=== PATIENT | male | born 1980 | race Caucasian/White ===

== ENCOUNTER 2017-02-18 12:09 | Emergency (ER) | payer OTHER ==
[~2017-02-18] VITALS: Ht 185.4 cm; Wt 113.0 kg
[2017-02-18 12:11] VITALS: BP 152/95; PULSE 80; RESP 18; TEMP 98.5; O2SAT 100
[2017-02-18] MEDS ORDERED: ONDANSETRON HCL 4 MG/2 ML VIAL IVP ONE (12:45)
[2017-02-18] MEDS ORDERED: MORPHINE SULFATE 4 MG/ML INJ IV PUSH ONE (12:45)
[2017-02-18] MEDS ORDERED: SODIUM CHLORIDE 0.9% FLUSH 10 ML FLUSH IVF PRN (12:45)
[2017-02-18] MEDS ORDERED: KETOROLAC TROMETHAMINE 30 MG/ML (IVP) VIAL IVP ONE (12:45)
--- NOTE | 2017-02-18 12:54 | PD ---
HPI . Left flank pain Chief Complaint: Abdominal Pain Time Seen by Provider: 12:42 Travel History International Travel<30 days: No Contact w/Intl Traveler<30days: No Traveled to known affect area: No History of Present Illness HPI Patient presents with the acute onset of left flank pain. It started today. Symptoms have waxed and waned. He denies any associated urinary symptoms. He does state that he has had previous kidney stones and that this feels similar. Pain is rated 10/10 at its maximum. PFSH Past Medical History Medical History: Denies Significant Hx Tetanus Vaccination: > 5 Years Influenza Vaccination: No Social History Alcohol Use: No Tobacco Use: No Substance Use: No Allergies-Medications (Allergen,Severity, Reaction): Coded Allergies: No Known Allergies (Unverified , 02/18/17) Reported Meds & Prescriptions Reported Meds & Active Scripts Active No Active Prescriptions or Reported Medications Review of Systems Except as stated in HPI: all other systems reviewed are Neg General / Constitutional: No: Fever, Chills Genitourinary: Positive: Flank Pain, No: Urgency, Frequency, Dysuria Physical Exam Narrative GENERAL: Patient appears uncomfortable. SKIN: A little pale. Dry. HEAD: Normocephalic/atraumatic. EYES: Pupils are equal. Extraocular movements are intact. NECK: Neck is supple. CARDIOVASCULAR: Regular rate and rhythm. RESPIRATORY: Nonlabored respirations. : Positive left CVA tenderness. No abdominal tenderness. MUSCULOSKELETAL: Atraumatic. NEUROLOGICAL: Nonfocal. PSYCHIATRIC: Appropriate mood and affect. Data Data Last Documented VS Vital Signs Date Time Temp Pulse Resp B/P (MAP) Pulse Ox O2 Delivery O2 Flow Rate FiO2 02/18/17 12:11 98.5 80 18 152/95 (114) 100 Room Air Orders Orders Urinalysis - C+S If Indicated (02/18/17 12:42) Ct Abd/Pel W/O Iv Contrast (02/18/17 12:42) Ketorolac Inj (Toradol Inj) (02/18/17 12:45) Ondansetron Inj (Zofran Inj) (02/18/17 12:45) Sodium Chloride 0.9% Flush (Ns Flush) (02/18/17 12:45) Morphine Inj (Morphine Inj) (02/18/17 12:45) MDM Medical Decision Making Medical Screen Exam Complete: Yes Emergency Medical Condition: Yes Differential Diagnosis Differential diagnosis of flank pain includes but is not limited to kidney stone , pyelonephritis, musculoskeletal pain, PE Narrative Course This patient presents with left flank pain. He will be evaluated for probable kidney stone. He will be treated with IV fluids and IV analgesics. Diagnosis Primary Impression: Left flank pain Scripts No Active Prescriptions or Reported Meds Melida Zapien MD Feb 18, 2017 12:54
[2017-02-18 13:36] LABS: BLOOD, URINE NEG (NEG); COMMENT (UR) CULT NOT INDICATED; CULTURE IF INDICATED CULT NOT INDICATED; GLUCOSE,URINE NEG (NEG); KETONE, URINE NEG (NEG); MUCUS URINE FEW /lpf (OCC); NITRITE,URINE NEG (NEG); URINE COLOR YELLOW (YELLW/STRAW)
[2017-02-18 13:52] VITALS: BP 140/83; PULSE 71; RESP 17; O2SAT 100
--- NOTE | 2017-02-18 14:22 | PD ---
Physical Exam Date Seen by Provider: Feb 18, 2017 Time Seen by Provider: 14:00 Narrative GENERAL: Well-nourished, well-developed male in no acute distress. Afebrile. Ambulatory. SKIN: Focused skin assessment warm/dry. HEAD: Normocephalic. EYES: No scleral icterus. No injection or drainage. NECK: Supple, trachea midline. No JVD or lymphadenopathy. CARDIOVASCULAR: Regular rate and rhythm without murmurs, gallops, or rubs. RESPIRATORY: Breath sounds equal bilaterally. No accessory muscle use. GASTROINTESTINAL: Abdomen soft, non-tender, nondistended. No CVA tenderness. Very mild tenderness to palpation of the left lower quadrant. Data Data Last Documented VS Vital Signs Date Time Temp Pulse Resp B/P (MAP) Pulse Ox O2 Delivery O2 Flow Rate FiO2 02/18/17 15:20 77 17 126/71 (89) 100 Room Air 02/18/17 12:11 98.5 Orders Orders Urinalysis - C+S If Indicated (02/18/17 12:42) Ct Abd/Pel W/O Iv Contrast (02/18/17 12:42) Ketorolac Inj (Toradol Inj) (02/18/17 12:45) Ondansetron Inj (Zofran Inj) (02/18/17 12:45) Sodium Chloride 0.9% Flush (Ns Flush) (02/18/17 12:45) Morphine Inj (Morphine Inj) (02/18/17 12:45) Labs Laboratory Tests Test 02/18/17 13:00 Urine Color YELLOW Urine Turbidity CLEAR Urine pH 8.0 Urine Specific Brewer 1.016 Urine Protein NEG mg/dL Urine Glucose (UA) NEG mg/dL Urine Ketones NEG mg/dL Urine Occult Blood NEG Urine Nitrite NEG Urine Bilirubin NEG Urine Urobilinogen LESS THAN 2.0 MG/DL Urine Leukocyte Esterase NEG Urine WBC LESS THAN 1 /hpf Urine Mucus FEW /lpf Microscopic Urinalysis Comment CULT NOT INDICATED MDM Medical Record Reviewed: Yes Supervised Visit with GUY: Yes Differential Diagnosis Left flank pain, kidney stone, pyelonephritis Narrative Course Patient signed out to me pending lab and imaging results. In short, this is a 37-year-old male presents to the emergency room for evaluation of left lower quadrant abdominal pain and left flank pain that started at 8 a.m this morning. Patient has had history of kidney since but states this is much more severe than previous. He had one episode of associated nausea and vomiting that he attributes to the pain. He has not taken anything for symptoms. Certain positions improved symptoms. Denies fever, chills, dysuria, urgency, frequency , or penile discharge. No chronic medical conditions or daily medications. UA is unremarkable. CT shows a 2 mm stone projecting out of the left ureterovesicular junction into the bladder. There are postobstructive changes surrounding the left kidney. He will be discharged with prescriptions for hydrocodone, Zofran, ibuprofen and told to follow-up with a primary care physician or return for worsening symptoms. He understands and agrees to plan. Diagnosis Primary Impression: Kidney stone Referrals: Primary Care Physician Additional Instruction: Rest and drink plenty of fluids. Zofran as directed, as needed for nausea and vomiting. Take Lortab as directed, as needed for severe pain. Do not drink alcohol or drive while taking this medication. Take ibuprofen with food as directed, as needed for pain. Apply ice to the affected area for 20 minutes at a time, as needed for pain and swelling. Follow-up with a primary care physician. Return to the emergency room for worsening symptoms. Scripts No Active Prescriptions or Reported Meds Disposition: 01 DISCHARGE HOME Condition: Stable Laila Gan Feb 18, 2017 14:22
[2017-02-18 15:20] VITALS: BP 126/71; PULSE 77; RESP 17; O2SAT 100
--- NOTE | 2017-02-18 15:50 | RADRPT ---
EXAM DATE/TIME: 02/18/2017 13:56 [facility] COMPARISON: No previous studies available for comparison. INDICATIONS : Left flank pain ORAL CONTRAST: No oral contrast ingested. RADIATION DOSE: 15.72 CTDIvol (mGy) MEDICAL HISTORY : None SURGICAL HISTORY : None. ENCOUNTER: Initial ACUITY: 1 day PAIN SCALE: 5/10 LOCATION: Left flank TECHNIQUE: Volumetric scanning of the abdomen and pelvis was performed. Using automated exposure control and ad justment of the mA and/or kV according to patient size, radiation dose was kept as low as reasonably achievable to obtain optimal diagnostic quality images. DICOM format image data is available electro nically for review and comparison. FINDINGS: Right kidney/ureter: The right kidney is normal in size. No stones are seen. The right ureter is followed throughout its c ourse and is unremarkable in appearance. Left kidney/ureter: There are moderate postobstructive changes and mild hydronephrosis. The left ureter is dilated down t o the level of the bladder. There is a 2 mm stone projecting L. the left ureterovesicular junction an d into the bladder. Bladder: The stone at the left UVJ is again identified. The contours are otherwise unremarkable. CT source data: The limited portion of lung base visualizes clear. The portions of liver and spleen are unremarkable. The pancreas and adrenal glands are intact. There is no retroperitoneal adenopathy. No free air or f ree fluid is seen. Loops of small large bowel are unremarkable. The osseous structures are grossly in tact. CONCLUSION: 1. There is a 2 mm stone projecting out of the left ureterovesicular junction into the bladder. There are postobstructive changes surrounding the left kidney. Lb Prater MD on February 18, 2017 at 15:46 Board Certified Radiologist. This report was verified electronically.
[2017-02-18] MEDS ORDERED: ZOFR4TAB3 SL (16:09)
[2017-02-18] MEDS ORDERED: HYDR-3516 PO ×2 (16:09→16:10)
[2017-02-18 16:26] VITALS: BP 127/82; PULSE 79; RESP 17
== END 2017-02-18 17:00 | disposition home or self-care (01) ==
LOC: NEPD 12:09
DX: R10.32 Left lower quadrant pain (principal); R11.2 Nausea with vomiting, unspecified; N20.0 Calculus of kidney; Z87.442 Personal history of urinary calculi
CPT/HCPCS: 74176; 81001; 96374; 96375; 99285; J1885; J2270; J2405